=== PATIENT | male | born 1950 | race Caucasian/White ===

== ENCOUNTER 2024-06-10 03:42 | Emergency (ER) | payer MEDICARE, OTHER, SELFPAY ==
[2024-06-10 03:43] VITALS: BP 207/110
[2024-06-10 03:50] VITALS: BP 199/96
[2024-06-10 04:02] VITALS: BP 197/94
--- NOTE | 2024-06-10 04:04 | ED.GENMED ---
History of Present Illness
General
Chief Complaint: Ear Problem
Source: patient
Exam Limitations: none
Time Seen by Provider: 06/10/24 03:52
History of Present Illness
History of Present Illness:
See MDM
Past History
Past History
ED Past Medical History: GERD and HTN
ED Past Surgical History: Appendectomy, Cholecystectomy and Orthopedic
Social History
Tobacco: Non-smoker
Alcohol: None
Drug: None
Personal:
Living: with family
Employment: Retired
Family History
Family History: Other
Phy Exam
Physical Exam
Physical Exam:
See MDM
Course
Orders/Labs/Results
Orders:
Orders
06/10/24 04:03
CT Head W/o Iv Contrast Urgent
Comment:
Reason For Exam: headache, left side hearing loss
Labetalol HCl [Trandate] 10 mg IV NOW STA
06/10/24 04:04
Electrocardiogram (*1) Urgent
Reason for Study: Hypertension, Benign
EKG- Treatment ONCE
06/10/24 04:14
Complete Blood Count/With Diff Urgent
Comprehensive Metabolic Panel Urgent
Abnormal Lab Results
06/10/24
04:14
MCH 31.8 H pg
(27.0-31.0)
Absolute Monos (auto) 0.8 H 10^3/uL
(0.1-0.6)
Monocytes % 11.0 H %
(1.7-9.3)
BUN 26 H mg/dl
(9-20)
Creatinine 1.5 H mg/dL
(0.7-1.3)
Glucose 108 H mg/dl
(70-99)
06/10/24 04:14
06/10/24 04:14
Vital Signs
Initial and Last Documented VS:
Initial Vital Signs
Temp Pulse Resp BP Pulse Ox
97.8 F 70 18 207/110 97
06/10/24 03:43 06/10/24 03:43 06/10/24 03:43 06/10/24 03:43 06/10/24 03:43
Last Documented Vital Signs
Temp Pulse Resp BP Pulse Ox
97.8 F 59 18 167/84 97
06/10/24 03:43 06/10/24 04:17 06/10/24 03:43 06/10/24 04:31 06/10/24 03:43
MDM/Problems Addressed
Differential Diagnosis Includes:
HPI and MDM Narrative:
74-year-old male presenting with left-sided hearing loss. Patient states he woke up to go to the bathroom and he noted that he could not hear from his left ear. He denies any trauma or new medications. He does complain of mild headache and
left-sided neck pain. In triage, patient found to be hypertensive. When questioned, patient states he takes 2.5 mg of amlodipine 3 times a week. I questioned the odd dosing. It appears that he was prescribed amlodipine daily but patient decided
to decrease it to 3 times a day.
On exam, his left TM is clear. He does have decreased hearing loss. Given the headache and hearing loss, will obtain CT. Will obtain basic blood work looking for endorgan damage and will provide IV labetalol with concern for possible hypertension
emergency
Physical exam
General: Well appearing and non-toxic
HEENT: protecting airway. Left TM clear
Neck: appears supple
CV: No evidence of cyanosis
Resp: No accessory muscle use
Abd: Non-distended
Extremities: No deformities
Neuro: alert
Psych: Normal affect
Skin: Intact
Problems Addressed including Acute and Chronic Conditions affecting care:
1. Hearing loss
Acuity: acute
Prognosis: stable
Details: Will obtain CT head
2. Hypertension
Acuity: acute
Prognosis: unstable
Details: Discussed compliance with medication and will give dose of IV labetalol
Updates
After labetalol, blood pressure is improving. Patient states his hearing has improved somewhat. CT head negative. Discussed follow-up with ENT and PCP. Discussed taking his blood pressure medication as prescribed
Differential Diagnosis (but not limited to): sensorineural hearing loss, hypertension emergency
Testing considered: Troponin
Drug therapy (if applicable): OTC meds, please see d/c instruction regarding Rx drugs
Amount and/or Complexity of Data Reviewed
Clinical info obtained from: Patient
External data reviewed: N/A
Labs I independently reviewed (but not limited to): Creatinine 1.5 appears to be at baseline
Radiology: The CT scan was personally and independently reviewed. In addition, official CT report reviewed.
Pulse Ox: not hypoxic
EKG independently reviewed: Sinus bradycardia, normal axis, no STEMI
Geometry Teacher: Sinus rhythm
Critical Care: N/A
Risk of Complication:
Social Determinants of health: Good social support
Discussed with other providers: N/A
Escalation of Care includes Admit/Obs: After being observed in the Emergency Department, pt stable for discharge.
Occasional wrong word or 'sound a like' substitutions may have occurred due to the inherent limitations of voice recognition software. Read the chart carefully and recognize, using context, where substitutions have occurred.
*Critical Care Note
Total Time (30-74mins, 75-104mins- exclusive of procedures): Not Applicable
ED Attending Note
-
Portions of this chart may have been created with voice recognition software.� Occasional wrong word or��sound alike� substitutions may have occurred due to the inherent limitations of voice recognition software.
Discharge Plan
Departure
Patient Disposition: Home (Routine Discharge)
Date of Disposition: 06/10/24
Time of Disposition: 05:17
Patient with high blood pressure during this ER visit?: Yes
Discharge Problem:
Hearing loss, Hypertensive urgency
Instructions: Hearing Loss in Adults, BLOOD PRESSURE
Prescriptions:
No Action
amlodipine 5 MG tablet
5 mg PO DAILY 0RF
pantoprazole 40 MG tablet,delayed release (DR/EC)
40 mg PO DAILY Qty: 30 0RF
gentamicin 0.3 % drops
1 drp ophthalmic (eye) Q6H 4 Days Qty: 5 0RF
Referrals:
Matt Ray MD [Active] -
Km Diego MD [Family Provider] -
Activity Restrictions/Additional Instructions:
Please return for any worsening symptoms.
You may return at any time if you have further concerns.
Please follow up with your doctor at the first available appointment, preferably this week.
Please make an appointment to see the ENT.
Thank you for choosing [facility].
Interventions
Interventions:
*Risk Screen - Suicide Last Done: 06/10/24 03:43
*General Assessment Last Done: 06/10/24 03:43
*Neglect/Abuse Screening Last Done: 06/10/24 03:43
ED- Fall Risk Assessment Last Done: 06/10/24 03:43
*ED COVID-19 Vaccine History Last Done: 06/10/24 03:43
Discharge Date and Time
Print Language: PORTUGUESE
[2024-06-10] MEDS: TRANDATE 10 MG IV (04:17)
[2024-06-10 04:29] LABS: % Basophils 0.6 % (0-2); % Eosinophils 2.7 % (0-6); % Immature Granulocytes 0.1 % (0-0.5); % Lymphocytes 26.4 % (20.5-51.1); % Neutrophils 59.2 % (42.2-75.2); Absolute Eosinophils 0.2 10^3/uL (0-0.7); Absolute Lymphocytes 1.9 10^3/uL (1.2-3.4); Absolute Monocytes 0.8 10^3/uL (0.1-0.6); Absolute Neutrophils 4.2 10^3/uL (1.4-6.5); Hematocrit 46.5 % (39.0-52.0); Mean Corp Hgb Conc. 34.4 g/dL (33.0-37.0); Mean Corpuscular Hgb 31.8 pg (27.0-31.0); Mean Corpuscular Volume 92.4 fL (80.0-94.0); Mean Platelet Volume 9.4 fL (7.4-10.4); Nucleated Red Blood Cells % 0 % (-); Platelet Count 156 10^3/uL (130-400); Red Blood Cell Count 5.03 10^6/uL (4.70-6.10); Red Cell Dist. Width 12.8 % (11.5-14.5); White Blood Cell Count 7.1 10^3/uL (4.8-10.8)
[2024-06-10 04:31] VITALS: BP 167/84
[2024-06-10 04:51] LABS: ALT (SGPT) 27 U/L (0-50); AST (SGOT) 26 U/L (17-59); Albumin 4.5 g/dl (3.5-5.0); Alkaline Phosphatase 43 U/L (38-126); Blood Urea Nitrogen 26 mg/dl (9-20); Carbon Dioxide 27 mmol/L (22-30); Chloride 105 mmol/L (98-107); Glucose 108 mg/dl (70-99); Potassium 4.2 mmol/L (3.5-5.1); Sodium 141 mmol/L (135-145); Total Bilirubin 0.7 mg/dl (0.2-1.3); Total Protein 7.3 g/dl (6.3-8.2); eGFR 48.25
== END 2024-06-10 05:32 | disposition home or self-care (01) ==
LOC: EMR 03:42
PROVIDERS: EMERGENCY PHYSICIAN Student in an Organized Health Care Education/Training Program; FAMILY PHYSICIAN Family Medicine
DX: H91.92 Unspecified hearing loss, left ear (principal); I16.0 Hypertensive urgency; K21.9 Gastro-esophageal reflux disease without esophagitis; Z90.49 Acquired absence of other specified parts of digestive tract
CPT/HCPCS: 96374; 99284; 70450; 80053; 85025; 93005

== ENCOUNTER → 2024-06-13 16:13 | Outpatient (REF) | payer MEDICARE, OTHER, SELFPAY | LOC: MRI 3T 16:13 | PROVIDERS: ATTENDING PHYSICIAN Otolaryngology; PRIMARYCARE PHYSICIAN Family Medicine | DX: H91.22 Sudden idiopathic hearing loss, left ear (principal) | CPT/HCPCS: 70553; A9575 ==

== ENCOUNTER 2024-12-11 06:12 | Day surgery (SDC) | payer MEDICARE, OTHER, SELFPAY | END 2024-12-11 10:13 | disposition home or self-care (01) | LOC: GI 06:12 | PROVIDERS: ATTENDING PHYSICIAN Internal Medicine Gastroenterology | DX: K22.70 Barrett's esophagus without dysplasia (principal); K31.7 Polyp of stomach and duodenum | CPT/HCPCS: 43239; 88305 ==